=== PATIENT | male | born 1955 | race African-American/Black ===

== ENCOUNTER 2016-12-12 13:03 | Day surgery (SDC) | payer OTHER ==
[~2016-12-12] VITALS: Ht 193 cm; Wt 98.6 kg
[2016-12-12 15:24] VITALS: Ht 193 cm; Wt 98.6 kg
[2016-12-12] MEDS ORDERED: ASPI81TA3 PO (15:28)
[2016-12-12] MEDS ORDERED: METOPROLOL (15:28)
[2016-12-12] MEDS ORDERED: NORVASC (15:28)
[2016-12-12] MEDS ORDERED: FENTAnyl 50 MCG/ML VIAL ONE (15:39)
[2016-12-12] MEDS ORDERED: LIDOCAINE 100 MG SYRINGE ONE (15:39)
[2016-12-12] MEDS ORDERED: PROPOFOL 60 ML ONE (15:39)
--- NOTE | 2016-12-12 16:03 | OPPN ---
Date/Time of Note Date/Time of Note DATE: 12/12/16 TIME: 16:02 Operative Report Preoperative Diagnosis Screening Postoperative Diagnosis Rectal polyps Operation/Procedure Performed Colonoscopy and biopsy Surgeon see signature line pharmacy affairs assistant None Anesthesia: MAC Estimated blood loss: none Transfusion Required none Specimen Rectal polyp Grafts/Implants none Complications none EVITA YEUNG MD Dec 12, 2016 16:03
[2016-12-12 16:28] VITALS: BP 133/77; RESP 14
--- NOTE | 2016-12-13 07:26 | GILP ---
DATE OF PROCEDURE: 12/12/2016 NAME OF THE PROCEDURES: Colonoscopy and biopsy. SURGEON: Hiren Ocasio MD. PREOPERATIVE DIAGNOSIS: Screening colonoscopy. POSTOPERATIVE DIAGNOSES: 1. Colonoscopy all the way to the cecum. 2. Status post sigmoid resection of the colon. 3. Rectal polyp and a patch in the rectum was biopsied for histopathology. 4. Internal hemorrhoids. INDICATION FOR THE PROCEDURE: Mr. Justin Downey is a 61-year-old male patient who was scheduled for screening colonoscopy. The procedure and possible complications were well explained to the patient. The patient understood and consented to the procedure. DESCRIPTION OF PROCEDURE: Under the influence of anesthesia, the colonoscope was carefully introduced in the rectum and under direct vision, it was advanced all the way to the cecum. FINDINGS: The patient was status post sigmoid resection of the colon. He had somewhat poor prep making the exam somewhat suboptimal. The patient was noted to have a small rectal polyp, and it was removed using the biopsy forceps. He also had a patch of thickened mucosa in the rectum and biopsies were taken for histopathology. He had internal hemorrhoids. He tolerated the procedure very well and there was no complication from the procedure. At the end of the procedure, he was awake with stable vital signs and he was discharged home to the care of his family. IMPRESSION: 1. Colonoscopy all the way to the cecum. 2. Somewhat poor prep making the exam somewhat suboptimal. 3. Rectal polyp was removed using the biopsy forceps. 4. A patch of thickened mucosa in the rectum and biopsies were taken for histopathology. 5. Internal hemorrhoids. 6. Mild melanosis coli. PLAN: 1. Await histopathology report. 2. The timing for the next colonoscopy will be decided after reviewing the biopsy reports. Dictated By: HIREN MORENO/TORI Conf#: [id number] DID#: [id number] DEANN
== END 2016-12-12 17:48 | disposition home or self-care (01) ==
LOC: GIL 13:03
PROVIDERS: ATTEND Internal Medicine Gastroenterology
DX: Z12.11 Encounter for screening for malignant neoplasm of colon (principal); D12.7 Benign neoplasm of rectosigmoid junction; K64.8 Other hemorrhoids
CPT/HCPCS: 45380; 88305; 88341; 88342; J2001; J3010; Z7610